=== PATIENT | male | born 1985 | race Two or more races ===

== ENCOUNTER 2020-11-24 19:01 | Emergency (ER) | payer OTHER ==
[~2020-11-24] VITALS: Ht 177.8 cm; Wt 109.1 kg
[2020-11-24 19:21] VITALS: BP 133/90
== END 2020-11-24 21:01 | disposition left against medical advice (07) ==
LOC: ER 19:03
DX: F60.0 Paranoid personality disorder (principal); Z53.21 Procedure and treatment not carried out due to patient leaving prior to being seen by health care provider